=== PATIENT | female | born 1955 | race Hispanic/Latino ===

== ENCOUNTER 2019-04-27 08:02 | Day surgery (SDC) | payer OTHER ==
[2019-04-27] MEDS ORDERED: NACL 0.9% 1000 ML 1,000 ML ONE (08:22)
[2019-04-27] MEDS: NACL 0.9% 1000 ML 1,000 ML IV SCH ×2 (08:53→10:10)
--- NOTE | 2019-04-27 09:36 | Anesthesia Consultation ---
Anesthesia Consult and Med Hx Date of service: 04/27/19 - Airway Anesthetic Teeth Evaluation: Chipped (bottom front), Partials (top) ROM Head & Neck: Adequate Mental/Hyoid Distance: Adequate - Pre-Operative Health Status ASA Pre-Surgery Classification: ASA3 Proposed Anesthetic Plan: MAC - Cardiovascular System Hx Hypertension: Yes - Hematic Hx Anemia: Yes (RESOLVED) - Other Systems Hx Cancer: Yes (FACIAL SKIN CANCERS REMOVED)
--- NOTE | 2019-04-27 09:44 | Anesthesia Day of Surgery ---
Anesthesia Day of Surgery - Day of Surgery Patient Examined: Yes Patient H&P Reviewed: Yes Patient is NPO: Yes Beta Blockers: Yes
--- NOTE | 2019-04-27 09:44 | Anesthesia Consultation ---
Anesthesia Consult and Med Hx Date of service: 04/27/19 - Airway Anesthetic Teeth Evaluation: Partials ROM Head & Neck: Adequate Mental/Hyoid Distance: Adequate Mallampati Class: Class II Intubation Access Assessment: Probably Good - Pulmonary Exam CTA: Yes - Cardiac Exam Cardiac Exam: No Murmur - Pre-Operative Health Status ASA Pre-Surgery Classification: ASA3 Proposed Anesthetic Plan: MAC - Cardiovascular System Hx Hypertension: Yes Hx Peripheral Vascular Disease: Yes (Aortic aneurysm 4.7 cm) - Gastrointestinal Hx Gastroesophageal Reflux Disease: Yes - Hematic Hx Anemia: Yes (RESOLVED) - Other Systems Hx Cancer: Yes (FACIAL SKIN CANCERS REMOVED)
[2019-04-27] MEDS ORDERED: DIPRIVAN 10 MG/ML IV ONE ×2 (10:07)
[2019-04-27] MEDS ORDERED: WATER FOR IRRIG STERILE IR ONE (10:10)
--- NOTE | 2019-04-27 10:48 | Operative Report ---
Operative Report Operative Report: DOS: 04/27/19 SURGEON: Calixto Kitchen MD COLONOSCOPY with biopsy REPORT PREOPERATIVE AND POSTOPERATIVE DIAGNOSIS: Diarrhea, PH colon polyps DESCRIPTION OF PROCEDURE: The colonoscope was passed to the terminal ileum as identified by the ileal tissue. Scope was carefully withdrawn. Retroflexion was performed in the rectum. At the end of procedure, the scope was cleaned using normal technique. Vital signs monitored continuously throughout. SEDATION: Provided by [facility]. Quality of the prep was adequate. COMPLICATIONS: None. ESTIMATED BLOOD LOSS: minimal FINDINGS: * Normal terminal ileum * Normal colonic mucosa. Random biopsies obtained to rule out microscopic colitis. Cold forceps biopsies obtained from the cecum, ascending, transverse, descending, sigmoid, and rectum * Remainder of the exam was normal RECOMMENDATIONS: * f/u path * Return to clinic in 1 month * Repeat colonoscopy 5 years
--- NOTE | 2019-04-27 10:52 | Operative Report ---
Operative Report Operative Report: DOS: 04/27/19 SURGEON: Calixto Kitchen MD EGD with biopsy REPORT PREOPERATIVE DIAGNOSIS and POSTOPERATIVE DIAGNOSIS: Abdominal pain, Nausea, diarrhea ESTIMATED BLOOD LOSS: minimal DESCRIPTION OF PROCEDURE: A high-resolution peds colonoscope was passed through the oropharynx, esophagus, stomach, and second portion of duodenum. The scope was carefully withdrawn. Retroflexion was performed in the stomach. At the end of the procedure, the scope was cleaned using normal technique. Vital signs monitored continuously throughout. SEDATION: Provided by [facility]. COMPLICATIONS: None. FINDINGS: * No gross lesions in the duodenum. Biopsies were taken to rule out celiac disease. A total of 6 biopsies were taken, the first from the duodenal bulb, with each subsequent biopsies progressively distal with the last biopsy as distal as could be reached with the endoscope * Moderate gastritis in the entire stomach, Biopsies were taken to rule out H. Pylori infection. A total of 5 biopsies were taken, 2 from the antrum, 1 from the incisura, 2 from the body. 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 4 quadrant random biopsies obtained to r/o dysplasia * Remainder of the exam was unremarkable RECOMMENDATIONS: * f/u path results and return to clinic in 2-4 weeks CC note to PCP, Dr. Rachid Zarate
[2019-04-27 11:23] VITALS: BP 129/69
== END 2019-04-27 08:03 | disposition home or self-care (01) ==
LOC: GIO 08:02
PROVIDERS: ATTEND Student in an Organized Health Care Education/Training Program
DX: K29.50 Unspecified chronic gastritis without bleeding (principal); K63.89 Other specified diseases of intestine; K21.0 Gastro-esophageal reflux disease with esophagitis; K44.9 Diaphragmatic hernia without obstruction or gangrene; I73.9 Peripheral vascular disease, unspecified; I10 Essential (primary) hypertension; M19.90 Unspecified osteoarthritis, unspecified site; Z85.89 Personal history of malignant neoplasm of other organs and systems; Z79.899 Other long term (current) drug therapy; Z86.010 Personal history of colon polyps; Z88.2 Allergy status to sulfonamides; Z88.8 Allergy status to other drugs, medicaments and biological substances; Z98.890 Other specified postprocedural states; Z90.49 Acquired absence of other specified parts of digestive tract; Z98.51 Tubal ligation status; Z90.710 Acquired absence of both cervix and uterus; Z86.2 Personal history of diseases of the blood and blood-forming organs and certain disorders involving the immune mechanism
CPT/HCPCS: 43239; 45380; 88305; 88342; J2704; J7030